=== PATIENT | male | born 1945 | race Caucasian/White ===

== ENCOUNTER 2019-06-24 18:46 | Inpatient (IN) | payer MEDICAID, MEDICARE ==
[~2019-06-24] VITALS: Ht 175.3 cm; Wt 62.6 kg
[2019-06-24] MEDS ORDERED: IV NORMAL SALINE 1000 ML BAG IV ONE (19:00)
[2019-06-24] MEDS ORDERED: CEFTRIAXONE 1 G in IV DEXTROSE 5% 50 ML IV ONE (19:00)
[2019-06-24] MEDS ORDERED: CEFTRIAXONE 1 G VIAL ONE (19:03)
[2019-06-24 19:10] LABS: ABG BASE EXCESS 4.1 mmol/L; ABG HCO3 25.6 mmol/L; ABG PCO2 29.5 mmHg (35.0-45.0); ABG PH 7.557 (7.350-7.450); ABG PO2 49.2 mmHg (75.0-100.0); ABG SITE RIGHT RADIAL; ABG TOTAL HEMOGLOBIN 13.2 G/dL (13.5-18.0); COHb 2.3 % (0.5-1.5); MetHb 0.2 % (0.0-1.5); O2Hb 83.5 % (94.0-97.0); VENT MODE Room Air
[2019-06-24 19:14] LABS: HEMOGLOBIN 12.3 g/dL (12.5-16.3); LYMPHOCYTES # (AUTO) 0.9 K/uL (20.0-40.0); MEAN CORPUSCULAR VOLUME 84.8 fL (73.0-96.2)
[2019-06-24 19:16] LABS: BASOPHILS # (AUTO) 0.2 K/uL (0.0-8.0); BASOPHILS % (AUTO) 0.6 % (0.0-2.0); HEMATOCRIT 37.6 % (36.7-47.1); LYMPHOCYTES % (AUTO) 2.5 % (20.5-51.5); MEAN CORPUSCULAR HEMOGLOBIN 27.9 uug (23.8-33.4); MEAN CORPUSCULAR HGB CONC 33 g/dL (32.5-36.3); MONOCYTES # (AUTO) 1.7 K/uL (2.0-10.0); MONOCYTES % (AUTO) 4.6 % (0.0-11.0); NEUTROPHILS # (AUTO) 33.6 K/uL (1.8-8.9); NEUTROPHILS % (AUTO) 92.3 % (38.5-71.5); PLATELET COUNT (AUTO) 324 K/uL (152-348); RED BLOOD CELL COUNT(AUTO) 4.43 MIL/uL (4.06-5.63)
[2019-06-24 19:18] LABS: CARBON DIOXIDE 26 mmol/L (21-32); CHLORIDE 94 mmol/L (98-107); CREATININE 3.7 mg/dL (0.6-1.3); GLUCOSE 148 mg/dL (74-106); POTASSIUM 5.8 mmol/L (3.5-5.1); UREA NITROGEN, BLOOD 65 mg/dL (7-18)
[2019-06-24 19:20] LABS: WHITE BLOOD COUNT (AUTO) 36.5 K/uL (3.6-10.2)
[2019-06-24 19:30] LABS: ALANINE AMINOTRANSFERASE 55 U/L (16-63); ALKALINE PHOSPHATASE 83 U/L (50-136); ASPARTATE AMINOTRANSFERASE 44 U/L (15-37); BILIRUBIN,DIRECT 0.4 mg/dL (0.0-0.2); BILIRUBIN,TOTAL 0.8 mg/dL (0.2-1.0); TOTAL PROTEIN, SERUM 7.4 g/dL (6.4-8.2)
[2019-06-24] MEDS ORDERED: LEVOFLOXACIN 750 MG/D5W 150 ML PIGGYBACK IV ONE (19:45)
[2019-06-24 19:58] LABS: *BILIRUBIN,URIN 1+ (NEGATIVE); *CLARITY,URINE CLEAR (CLEAR); *COLOR,URINE AMBER (YELLOW); *KETONES,URINE NEGATIVE (NEGATIVE); *UROBILINOGEN,URINE 0.2 E.U./dl (NORMAL); LEUKOCYTE ESTERASE ,URINE NEGATIVE (NEGATIVE); NITRITE, URINE NEGATIVE (NEGATIVE); PH,URINE 6.5 (5.0-8.0); UGLUCOSE NEGATIVE (NEGATIVE)
[2019-06-24] MEDS ORDERED: LEVOFLOXACIN 750MG/D5W 150 ML IV ONE (20:01)
[2019-06-24 20:07] LABS: *BLOOD, URINE TRACE (NEGATIVE)
[2019-06-24 20:08] LABS: MUCUS,URINE MANY /LPF (0-FEW); SQUAMOUS EPITHELIAL CELL,UR FEW /HPF (NONE SEEN)
[2019-06-24 20:15] LABS: BAND % (MANUAL) 10 % (0-10); LYMPHOCYTES % (MANUAL) 2 % (20-40); MONOCYTES % (MANUAL) 4 % (2-10); NEUTROPHILS % (MANUAL) 84 % (42-75)
[2019-06-24] MEDS ORDERED: ENOXAPARIN SODIUM 60 MG/0.6 ML DISP.SYRIN SQ ONE ×2 (20:15→20:31)
[2019-06-24] MEDS ORDERED: CALC-1277 PO (20:40)
[2019-06-24] MEDS ORDERED: VENL150T PO (20:40)
[2019-06-24] MEDS ORDERED: PANT40TA4 PO (20:40)
[2019-06-24] MEDS ORDERED: CALC500T13 PO (20:40)
[2019-06-24] MEDS ORDERED: METO50TA16 PO (20:40)
[2019-06-24] MEDS ORDERED: ALPR0.255 PO (20:40)
[2019-06-24] MEDS ORDERED: RIFA300C4 PO (20:40)
[2019-06-24] MEDS ORDERED: FINA5TAB11 PO (20:40)
[2019-06-24] MEDS ORDERED: ZOLP10TA6 PO (20:40)
[2019-06-24] MEDS ORDERED: PRED20TA PO (20:40)
[2019-06-24] MEDS ORDERED: VARE1TAB PO (20:40)
[2019-06-24] MEDS ORDERED: UMEC1BLS IH (20:40)
[2019-06-24] MEDS ORDERED: SULF1TAB48 PO (20:40)
[2019-06-24] MEDS ORDERED: FLUT1DIS27 IH (20:40)
[2019-06-24] MEDS ORDERED: PRIM50TA27 PO (20:40)
[2019-06-24] MEDS ORDERED: BUPR150T10 PO (20:40)
[2019-06-24] MEDS ORDERED: TRAM50TA2 PO (20:40)
[2019-06-24] MEDS ORDERED: NICO-672 TD (20:40)
[2019-06-24] MEDS ORDERED: TERA5CAP4 PO (20:40)
[2019-06-24] MEDS ORDERED: ONDA4TAB10 PO (20:40)
[2019-06-24] MEDS ORDERED: RANI150T8 PO (20:40)
[2019-06-24] MEDS ORDERED: PRIMIDONE 50 MG TABLET PO SCH (21:00)
[2019-06-24] MEDS ORDERED: ALPRAZOLAM 0.25 MG TABLET PO PRN (21:00)
[2019-06-24] MEDS ORDERED: Z GUARD REMEDY PASTE 57 GM TUBE TOP PRN (21:15)
[2019-06-24] MEDS ORDERED: ONDANSETRON 4 MG/2 ML VIAL IV PRN (21:15)
[2019-06-24] MEDS ORDERED: TEMAZEPAM 7.5 MG CAPSULE PO PRN (21:30)
[2019-06-24] MEDS ORDERED: ALBUTEROL SULFATE 2.5 MG/3 ML NEBU NEB PRN (21:30)
[2019-06-24 21:40] VITALS: BP 119/64
[2019-06-24 22:29] VITALS: BP 119/64
[2019-06-25] VITALS (26 sets, daily range): BP systolic 83–132; BP diastolic 40–88
[2019-06-25] MEDS: NICOTINE 7 MG/24HR PATCH TD SCH ×2 (00:22→08:34)
[2019-06-25] MEDS: PIPERACILLIN SODIUM/TAZOBACTAM 3.375 G in IV DEXTROSE 5% 50 ML IV SCH ×2 (00:26→08:34)
[2019-06-25] MEDS ORDERED: PIPERACILLIN/TAZOBACTAM/D5W 50 ML IV ONE (00:26)
[2019-06-25] MEDS: PANTOPRAZOLE SODIUM 40 MG TABLET.DR PO SCH (07:13)
[2019-06-25 08:21] LABS: BASOPHILS % (AUTO) 0.1 % (0.0-2.0); EOSINOPHILS # (AUTO) 0.1 K/uL (0.0-0.7); EOSINOPHILS % (AUTO) 0.2 % (0.0-7.0); HEMATOCRIT 33.8 % (36.7-47.1); HEMOGLOBIN 10.9 g/dL (12.5-16.3); LYMPHOCYTES # (AUTO) 0.7 K/uL (20.0-40.0); LYMPHOCYTES % (AUTO) 2.2 % (20.5-51.5); MEAN CORPUSCULAR HEMOGLOBIN 28.3 uug (23.8-33.4); MEAN CORPUSCULAR HGB CONC 32 g/dL (32.5-36.3); MEAN CORPUSCULAR VOLUME 87.5 fL (73.0-96.2); MONOCYTES # (AUTO) 1.4 K/uL (2.0-10.0); MONOCYTES % (AUTO) 4.8 % (0.0-11.0); NEUTROPHILS # (AUTO) 27.8 K/uL (1.8-8.9); NEUTROPHILS % (AUTO) 92.7 % (38.5-71.5); PLATELET COUNT (AUTO) 214 K/uL (152-348); RED BLOOD CELL COUNT(AUTO) 3.86 MIL/uL (4.06-5.63)
[2019-06-25] MEDS: FINASTERIDE 5 MG TABLET PO SCH (08:34)
[2019-06-25 08:38] LABS: THYROID STIMULATING HORMONE 1.004 mIU/mL (0.358-3.740)
[2019-06-25] MEDS: TERAZOSIN 5 MG CAPSULE PO SCH (08:39)
[2019-06-25 08:49] LABS: ALANINE AMINOTRANSFERASE 42 U/L (16-63); ALKALINE PHOSPHATASE 73 U/L (50-136); ASPARTATE AMINOTRANSFERASE 41 U/L (15-37); BILIRUBIN,TOTAL 0.4 mg/dL (0.2-1.0); CARBON DIOXIDE 25 mmol/L (21-32); CHLORIDE 100 mmol/L (98-107); CHOLESTEROL 221 mg/dL (<200); CREATININE 4.5 mg/dL (0.6-1.3); GLUCOSE 108 mg/dL (74-106); HDL CHOLESTEROL 67 mg/dL (40-60); PHOSPHOROUS 5.6 mg/dL (2.5-4.9); POTASSIUM 4.5 mmol/L (3.5-5.1); TOTAL PROTEIN, SERUM 6.7 g/dL (6.4-8.2); TRIGLYCERIDES 156 MG/DL (30-150); UREA NITROGEN, BLOOD 54 mg/dL (7-18)
[2019-06-25] MEDS: FLUTICASONE/VILANTEROL 1 EACH BLST.W.DEV INH SCH (09:00)
[2019-06-25] MEDS ORDERED: HEPARIN SODIUM,PORCINE 5,000 UNITS/ML VIAL SQ SCH (09:00)
[2019-06-25] MEDS ORDERED: buPROPion SR 150 MG TABLET.SA PO SCH ×2 (09:00)
[2019-06-25] MEDS ORDERED: RIFAMPIN 300 MG CAPSULE PO SCH (09:00)
[2019-06-25] MEDS ORDERED: FLUTICASONE/SALMETEROL 100/50 1 INH DISK.W.DEV IH SCH (09:00)
[2019-06-25] MEDS ORDERED: METOPROLOL TARTRATE 50 MG TABLET PO SCH (09:00)
[2019-06-25 09:28] LABS: BAND % (MANUAL) 2 % (0-10); LYMPHOCYTES % (MANUAL) 3 % (20-40); MONOCYTES % (MANUAL) 5 % (2-10); NEUTROPHILS % (MANUAL) 90 % (42-75)
[2019-06-25] MEDS ORDERED: IV NS 1000 ML 1,000 ML IV ONE (10:45)
[2019-06-25] MEDS: CALCIUM CARB/VITAMIN D 250MG-125UNITS TABLET PO SCH (10:52)
[2019-06-25] MEDS: VENLAFAXINE XR 150 MG CAP.SR.24H PO SCH (11:00)
[2019-06-25] MEDS ORDERED: NOREPINEPHRINE BITARTRATE 16 MG in IV DEXTROSE 5% 500 ML IV PRN (12:00)
[2019-06-25] MEDS: buPROPion XL 150 MG TAB.SR.24H PO SCH (12:30)
[2019-06-25] MEDS ORDERED: BUPR-51 PO (12:40)
[2019-06-25] MEDS: PRIMIDONE 50 MG TABLET PO SCH ×2 (13:55→21:02)
[2019-06-25] MEDS ORDERED: LINEZOLID IV 600 MG in PREMIXED 1 EACH IV SCH (16:45)
[2019-06-25] MEDS: MEROPENEM 500 MG in IV NORMAL SALINE 50 ML IV SCH (17:58)
[2019-06-25] MEDS ORDERED: VANCOMYCIN IV 1,000 MG in IV DEXTROSE 5% 250 ML IV ONE (18:00)
[2019-06-25] MEDS: DOCUSATE SODIUM 100 MG CAPSULE PO SCH (21:00)
[2019-06-25] MEDS: LEVOFLOXACIN 750MG/D5W 750 MG in PREMIXED 1 EACH IV SCH (21:01)
[2019-06-25] MEDS: MORPHINE SULFATE 2 MG/1 ML DISP.SYRIN IV PRN (23:36)
[2019-06-26] VITALS (25 sets, daily range): BP systolic 95–147; BP diastolic 44–85
[2019-06-26 04:59] LABS: BASOPHILS % (AUTO) 0.2 % (0.0-2.0); EOSINOPHILS # (AUTO) 0.2 K/uL (0.0-0.7); EOSINOPHILS % (AUTO) 0.9 % (0.0-7.0); HEMATOCRIT 30.1 % (36.7-47.1); HEMOGLOBIN 9.7 g/dL (12.5-16.3); LYMPHOCYTES # (AUTO) 0.9 K/uL (20.0-40.0); LYMPHOCYTES % (AUTO) 4.6 % (20.5-51.5); MEAN CORPUSCULAR HEMOGLOBIN 28.3 uug (23.8-33.4); MEAN CORPUSCULAR HGB CONC 32 g/dL (32.5-36.3); MONOCYTES # (AUTO) 1.1 K/uL (2.0-10.0); MONOCYTES % (AUTO) 5.9 % (0.0-11.0); NEUTROPHILS # (AUTO) 16.4 K/uL (1.8-8.9); NEUTROPHILS % (AUTO) 88.4 % (38.5-71.5); PLATELET COUNT (AUTO) 181 K/uL (152-348); RED BLOOD CELL COUNT(AUTO) 3.42 MIL/uL (4.06-5.63); WHITE BLOOD COUNT (AUTO) 18.6 K/uL (3.6-10.2)
[2019-06-26 05:07] LABS: CARBON DIOXIDE 22 mmol/L (21-32); CHLORIDE 104 mmol/L (98-107); GLUCOSE 115 mg/dL (74-106); MAGNESIUM 1.4 mg/dL (1.8-2.4); PHOSPHOROUS 2.4 mg/dL (2.5-4.9); POTASSIUM 3.5 mmol/L (3.5-5.1); UREA NITROGEN, BLOOD 33 mg/dL (7-18)
[2019-06-26] MEDS: PRIMIDONE 50 MG TABLET PO SCH ×3 (06:00→21:40)
[2019-06-26] MEDS: MEROPENEM 500 MG in IV NORMAL SALINE 50 ML IV SCH ×2 (06:03→18:07)
[2019-06-26] MEDS: PANTOPRAZOLE SODIUM 40 MG TABLET.DR PO SCH (06:25)
[2019-06-26 08:16] LABS: ABG BASE EXCESS -3.7 mmol/L; ABG HCO3 18.4 mmol/L; ABG PCO2 25.2 mmHg (35.0-45.0); ABG PH 7.481 (7.350-7.450); ABG PO2 55.5 mmHg (75.0-100.0); ABG SITE RIGHT RADIAL; ABG TOTAL HEMOGLOBIN 11.5 G/dL (13.5-18.0); COHb 1.2 % (0.5-1.5); MetHb 0.1 % (0.0-1.5); O2Hb 88.8 % (94.0-97.0); VENT MODE Nasal Cannula
[2019-06-26] MEDS: buPROPion XL 150 MG TAB.SR.24H PO SCH (09:00)
[2019-06-26] MEDS: FINASTERIDE 5 MG TABLET PO SCH (09:00)
[2019-06-26] MEDS: NICOTINE 7 MG/24HR PATCH TD SCH (09:00)
[2019-06-26] MEDS: TERAZOSIN 5 MG CAPSULE PO SCH (09:00)
[2019-06-26] MEDS: FLUTICASONE/VILANTEROL 1 EACH BLST.W.DEV INH SCH (09:00)
[2019-06-26] MEDS: VENLAFAXINE XR 150 MG CAP.SR.24H PO SCH (09:00)
[2019-06-26] MEDS: MAGNESIUM SULFATE/D5W 100 ML IV SCH ×4 (09:15→16:30)
[2019-06-26] MEDS: CALCIUM CARBONATE 500 MG TAB.CHEW PO PRN (09:19)
[2019-06-26] MEDS: HYDROCODONE/APAP 10-325 MG TABLET PO PRN ×2 (09:19→16:40)
[2019-06-26] MEDS: CALCIUM CARB/VITAMIN D 250MG-125UNITS TABLET PO SCH (10:10)
[2019-06-26] MEDS ORDERED: MAGNESIUM SULFATE/D5W 100 ML IV SCH (15:30)
[2019-06-26] MEDS ORDERED: NEUTRA PHOS PACKET PO ONE (16:00)
[2019-06-26] MEDS ORDERED: VANCOMYCIN IV 1,000 MG in IV DEXTROSE 5% 250 ML IV ONE (17:00)
[2019-06-26] MEDS: DOCUSATE SODIUM 100 MG CAPSULE PO SCH ×2 (20:39→21:00)
[2019-06-26] MEDS ORDERED: IV NORMAL SALINE 500 ML BAG IV ONE (23:30)
[2019-06-26] MEDS: MORPHINE SULFATE 2 MG/1 ML DISP.SYRIN IV PRN (23:41)
[2019-06-27] VITALS (13 sets, daily range): BP systolic 115–154; BP diastolic 56–76
[2019-06-27 00:54] LABS: MAGNESIUM 2.1 mg/dL (1.8-2.4); POTASSIUM 3.2 mmol/L (3.5-5.1)
[2019-06-27] MEDS: IV NORMAL SALINE 250 ML IV PRN ×2 (01:29→19:07)
[2019-06-27] MEDS: POTASSIUM CHLORIDE 50 ML IV SCH ×4 (02:15→04:39)
[2019-06-27] MEDS: MEROPENEM 500 MG in IV NORMAL SALINE 50 ML IV SCH ×2 (05:28→17:23)
[2019-06-27] MEDS: PRIMIDONE 50 MG TABLET PO SCH ×3 (06:00→22:46)
[2019-06-27] MEDS: PANTOPRAZOLE SODIUM 40 MG TABLET.DR PO SCH (06:28)
[2019-06-27 06:35] LABS: CARBON DIOXIDE 23 mmol/L (21-32); CHLORIDE 107 mmol/L (98-107); CREATININE 1.6 mg/dL (0.6-1.3); GLUCOSE 92 mg/dL (74-106); MAGNESIUM 1.9 mg/dL (1.8-2.4); PHOSPHOROUS 1.7 mg/dL (2.5-4.9); UREA NITROGEN, BLOOD 22 mg/dL (7-18)
[2019-06-27] MEDS ORDERED: MISCELLANEOUS MED XX PRN (07:45)
[2019-06-27 07:48] LABS: BASOPHILS # (AUTO) 0.1 K/uL (0.0-8.0); BASOPHILS % (AUTO) 0.3 % (0.0-2.0); EOSINOPHILS # (AUTO) 0.1 K/uL (0.0-0.7); EOSINOPHILS % (AUTO) 0.6 % (0.0-7.0); HEMATOCRIT 31.9 % (36.7-47.1); HEMOGLOBIN 10.3 g/dL (12.5-16.3); LYMPHOCYTES # (AUTO) 1.3 K/uL (20.0-40.0); LYMPHOCYTES % (AUTO) 6.4 % (20.5-51.5); MEAN CORPUSCULAR HEMOGLOBIN 28.3 uug (23.8-33.4); MEAN CORPUSCULAR HGB CONC 32 g/dL (32.5-36.3); MEAN CORPUSCULAR VOLUME 87.3 fL (73.0-96.2); MONOCYTES # (AUTO) 1.2 K/uL (2.0-10.0); MONOCYTES % (AUTO) 5.6 % (0.0-11.0); NEUTROPHILS # (AUTO) 18.2 K/uL (1.8-8.9); NEUTROPHILS % (AUTO) 87.1 % (38.5-71.5); PLATELET COUNT (AUTO) 183 K/uL (152-348); RED BLOOD CELL COUNT(AUTO) 3.65 MIL/uL (4.06-5.63); WHITE BLOOD COUNT (AUTO) 20.9 K/uL (3.6-10.2)
[2019-06-27] MEDS ORDERED: VANCOMYCIN IV 1,000 MG in IV DEXTROSE 5% 250 ML IV ONE (08:00)
[2019-06-27] MEDS: ACETAMINOPHEN 650 MG SUPP.RECT RC PRN ×3 (08:03→19:07)
[2019-06-27 08:20] LABS: *BILIRUBIN,URIN 1+ (NEGATIVE); *BLOOD, URINE 2+ (NEGATIVE); *CLARITY,URINE CLEAR (CLEAR); *COLOR,URINE YELLOW (YELLOW); *KETONES,URINE 1+ (NEGATIVE); *UROBILINOGEN,URINE 0.2 E.U./dl (NORMAL); LEUKOCYTE ESTERASE ,URINE NEGATIVE (NEGATIVE); NITRITE, URINE NEGATIVE (NEGATIVE); PH,URINE 5.5 (5.0-8.0); UGLUCOSE NEGATIVE (NEGATIVE)
[2019-06-27 08:34] LABS: BACTERIA,URINE FEW /HPF (NONE SEEN); SQUAMOUS EPITHELIAL CELL,UR FEW /HPF (NONE SEEN)
[2019-06-27 08:43] LABS: ABG BASE EXCESS -2.5 mmol/L; ABG HCO3 19.9 mmol/L; ABG PCO2 27.4 mmHg (35.0-45.0); ABG PH 7.479 (7.350-7.450); ABG PO2 68.4 mmHg (75.0-100.0); ABG SITE RIGHT RADIAL; ABG TOTAL HEMOGLOBIN 11.5 G/dL (13.5-18.0); MetHb 0.1 % (0.0-1.5); O2Hb 92.4 % (94.0-97.0); VENT MODE Nasal Cannula
[2019-06-27] MEDS: FINASTERIDE 5 MG TABLET PO SCH (09:00)
[2019-06-27] MEDS: CALCIUM CARB/VITAMIN D 250MG-125UNITS TABLET PO SCH (09:00)
[2019-06-27] MEDS: TERAZOSIN 5 MG CAPSULE PO SCH (09:00)
[2019-06-27] MEDS: buPROPion XL 150 MG TAB.SR.24H PO SCH (09:00)
[2019-06-27] MEDS: VENLAFAXINE XR 150 MG CAP.SR.24H PO SCH (09:00)
[2019-06-27] MEDS: ALBUTEROL SULFATE 2.5 MG/3 ML NEBU NEB SCH ×3 (10:30→21:11)
[2019-06-27] MEDS: IPRATROPIUM BROMIDE 0.5 MG/2.5 ML NEBU NEB SCH ×3 (10:30→21:11)
[2019-06-27] MEDS: MICAFUNGIN SODIUM 100 MG in IV NORMAL SALINE 100 ML IV SCH (11:48)
[2019-06-27] MEDS: MORPHINE SULFATE 2 MG/1 ML DISP.SYRIN IV PRN (14:36)
[2019-06-27] MEDS ORDERED: NEUTRA PHOS PACKET PO ONE (15:30)
[2019-06-27] MEDS: LEVOFLOXACIN 750MG/D5W 750 MG in PREMIXED 1 EACH IV SCH (19:56)
[2019-06-27] MEDS: DOCUSATE SODIUM 100 MG CAPSULE PO SCH (20:40)
[2019-06-28] VITALS (9 sets, daily range): BP systolic 95–128; BP diastolic 53–93
[2019-06-28] MEDS: ACETAMINOPHEN 325 MG TABLET PO PRN (04:29)
[2019-06-28] MEDS: MORPHINE SULFATE 2 MG/1 ML DISP.SYRIN IV PRN ×2 (04:29→22:08)
[2019-06-28] MEDS: MEROPENEM 500 MG in IV NORMAL SALINE 50 ML IV SCH ×2 (05:30→18:07)
[2019-06-28] MEDS: PRIMIDONE 50 MG TABLET PO SCH ×4 (05:30→21:57)
[2019-06-28 07:02] LABS: BASOPHILS % (AUTO) 0.3 % (0.0-2.0); EOSINOPHILS # (AUTO) 0.2 K/uL (0.0-0.7); HEMATOCRIT 32.9 % (36.7-47.1); HEMOGLOBIN 10.7 g/dL (12.5-16.3); LYMPHOCYTES # (AUTO) 0.9 K/uL (20.0-40.0); LYMPHOCYTES % (AUTO) 4.6 % (20.5-51.5); MEAN CORPUSCULAR HEMOGLOBIN 28.6 uug (23.8-33.4); MEAN CORPUSCULAR HGB CONC 32 g/dL (32.5-36.3); MEAN CORPUSCULAR VOLUME 88.1 fL (73.0-96.2); MONOCYTES # (AUTO) 1.4 K/uL (2.0-10.0); MONOCYTES % (AUTO) 7.2 % (0.0-11.0); NEUTROPHILS # (AUTO) 16.6 K/uL (1.8-8.9); NEUTROPHILS % (AUTO) 86.9 % (38.5-71.5); PLATELET COUNT (AUTO) 176 K/uL (152-348); RED BLOOD CELL COUNT(AUTO) 3.73 MIL/uL (4.06-5.63); WHITE BLOOD COUNT (AUTO) 19.1 K/uL (3.6-10.2)
[2019-06-28 07:31] LABS: ALANINE AMINOTRANSFERASE 39 U/L (16-63); ALKALINE PHOSPHATASE 107 U/L (50-136); ASPARTATE AMINOTRANSFERASE 33 U/L (15-37); BILIRUBIN,TOTAL 0.3 mg/dL (0.2-1.0); CARBON DIOXIDE 27 mmol/L (21-32); CHLORIDE 108 mmol/L (98-107); CREATININE 1.2 mg/dL (0.6-1.3); GLUCOSE 146 mg/dL (74-106); MAGNESIUM 1.5 mg/dL (1.8-2.4); PHOSPHOROUS 2.4 mg/dL (2.5-4.9); TOTAL PROTEIN, SERUM 6.6 g/dL (6.4-8.2); UREA NITROGEN, BLOOD 23 mg/dL (7-18); VANCOMYCIN,RANDOM 14.9 ug/mL (18.0-26.0)
[2019-06-28] MEDS: ALBUTEROL SULFATE 2.5 MG/3 ML NEBU NEB SCH ×4 (07:55→20:51)
[2019-06-28] MEDS: IPRATROPIUM BROMIDE 0.5 MG/2.5 ML NEBU NEB SCH ×4 (07:55→20:50)
[2019-06-28] MEDS: TERAZOSIN 5 MG CAPSULE PO SCH ×3 (09:00→13:30)
[2019-06-28] MEDS: CALCIUM CARB/VITAMIN D 250MG-125UNITS TABLET PO SCH ×2 (09:00→09:19)
[2019-06-28] MEDS: VENLAFAXINE XR 150 MG CAP.SR.24H PO SCH ×3 (09:00→13:30)
[2019-06-28] MEDS: RIFAMPIN 300 MG CAPSULE PO SCH ×3 (09:00→13:30)
[2019-06-28] MEDS: FINASTERIDE 5 MG TABLET PO SCH ×3 (09:00→13:30)
[2019-06-28] MEDS: PANTOPRAZOLE SODIUM 40 MG VIAL IV SCH (09:15)
[2019-06-28] MEDS: buPROPion XL 150 MG TAB.SR.24H PO SCH (09:17)
[2019-06-28] MEDS: POTASSIUM CHLORIDE 50 ML IV SCH ×6 (09:46→19:02)
[2019-06-28] MEDS ORDERED: VANCOMYCIN IV 1,000 MG in IV DEXTROSE 5% 250 ML IV ONE (10:00)
[2019-06-28] MEDS: MICAFUNGIN SODIUM 100 MG in IV NORMAL SALINE 100 ML IV SCH (11:46)
[2019-06-28] MEDS: VANCOMYCIN FOR PO/GT/NG USE PO SCH ×3 (12:00→17:16)
[2019-06-28] MEDS: SULFAMETH/TRIMETH 800/160 MG TABLET PO SCH (13:00)
[2019-06-28] MEDS: methylPREDNISolone SOD SUCC 40 MG/ML VIAL IV SCH ×2 (13:06→21:18)
[2019-06-28] MEDS: MAGNESIUM SULFATE/D5W 100 ML IV SCH ×2 (15:07→17:07)
[2019-06-28] MEDS ORDERED: NEUTRA PHOS PACKET PO ONE (15:30)
[2019-06-28] MEDS: METOPROLOL TARTRATE 25 MG TABLET PO SCH ×2 (19:00→21:17)
[2019-06-28] MEDS ORDERED: SULFAMETH/TRIMETH 800/160 MG TABLET PO SCH (21:00)
[2019-06-28] MEDS: DOCUSATE SODIUM 100 MG CAPSULE PO SCH (21:18)
[2019-06-29] VITALS (7 sets, daily range): BP systolic 90–138; BP diastolic 56–90
[2019-06-29] MEDS: VANCOMYCIN FOR PO/GT/NG USE PO SCH ×5 (00:05→23:46)
[2019-06-29] MEDS: METOPROLOL TARTRATE 25 MG TABLET PO SCH ×6 (01:21→23:46)
[2019-06-29] MEDS: HYDROCODONE/APAP 5-325MG TABLET PO PRN ×2 (01:25→20:44)
[2019-06-29] MEDS: MEROPENEM 500 MG in IV NORMAL SALINE 50 ML IV SCH ×2 (05:31→18:39)
[2019-06-29] MEDS: methylPREDNISolone SOD SUCC 40 MG/ML VIAL IV SCH ×3 (05:32→22:06)
[2019-06-29] MEDS: PRIMIDONE 50 MG TABLET PO SCH ×3 (05:46→22:06)
[2019-06-29 06:39] LABS: BASOPHILS % (AUTO) 0.2 % (0.0-2.0); EOSINOPHILS # (AUTO) 0.1 K/uL (0.0-0.7); EOSINOPHILS % (AUTO) 0.6 % (0.0-7.0); HEMATOCRIT 32.1 % (36.7-47.1); HEMOGLOBIN 10.3 g/dL (12.5-16.3); LYMPHOCYTES # (AUTO) 1.2 K/uL (20.0-40.0); LYMPHOCYTES % (AUTO) 9.5 % (20.5-51.5); MEAN CORPUSCULAR HEMOGLOBIN 28.3 uug (23.8-33.4); MEAN CORPUSCULAR HGB CONC 32 g/dL (32.5-36.3); MEAN CORPUSCULAR VOLUME 88.1 fL (73.0-96.2); MONOCYTES % (AUTO) 7.4 % (0.0-11.0); NEUTROPHILS # (AUTO) 10.7 K/uL (1.8-8.9); NEUTROPHILS % (AUTO) 82.3 % (38.5-71.5); PLATELET COUNT (AUTO) 147 K/uL (152-348); RED BLOOD CELL COUNT(AUTO) 3.65 MIL/uL (4.06-5.63)
[2019-06-29] MEDS: ALBUTEROL SULFATE 2.5 MG/3 ML NEBU NEB SCH ×4 (07:28→19:10)
[2019-06-29] MEDS: IPRATROPIUM BROMIDE 0.5 MG/2.5 ML NEBU NEB SCH ×4 (07:28→19:10)
[2019-06-29 08:55] LABS: BILIRUBIN,TOTAL 0.2 mg/dL (0.2-1.0); CREATININE 1.2 mg/dL (0.6-1.3); MAGNESIUM 1.9 mg/dL (1.8-2.4); PHOSPHOROUS 3.5 mg/dL (2.5-4.9); POTASSIUM 4.4 mmol/L (3.5-5.1); TOTAL PROTEIN, SERUM 6.2 g/dL (6.4-8.2); VANCOMYCIN,RANDOM 14.2 ug/mL (18.0-26.0)
[2019-06-29] MEDS: TERAZOSIN 5 MG CAPSULE PO SCH (09:00)
[2019-06-29] MEDS: FINASTERIDE 5 MG TABLET PO SCH (09:45)
[2019-06-29] MEDS: buPROPion XL 150 MG TAB.SR.24H PO SCH (09:45)
[2019-06-29] MEDS: PANTOPRAZOLE SODIUM 40 MG VIAL IV SCH (09:46)
[2019-06-29] MEDS: RIFAMPIN 300 MG CAPSULE PO SCH (09:51)
[2019-06-29] MEDS: CALCIUM CARB/VITAMIN D 250MG-125UNITS TABLET PO SCH (09:51)
[2019-06-29] MEDS: VENLAFAXINE XR 150 MG CAP.SR.24H PO SCH (09:51)
[2019-06-29] MEDS: MAGNESIUM SULFATE/D5W 100 ML IV SCH ×2 (09:59→11:02)
[2019-06-29] MEDS ORDERED: VANCOMYCIN IV 1,000 MG in IV DEXTROSE 5% 250 ML IV ONE (10:00)
[2019-06-29] MEDS: PYRIDOXINE HCL 100 MG TABLET PO SCH (10:02)
[2019-06-29] MEDS: MICAFUNGIN SODIUM 100 MG in IV NORMAL SALINE 100 ML IV SCH (12:09)
[2019-06-29] MEDS: SULFAMETH/TRIMETH 800/160 MG TABLET PO SCH (12:10)
[2019-06-29] MEDS: POTASSIUM PHOSPHATE MM 7.5 MMOL in IV DEXTROSE 5% 100 ML IV SCH ×2 (15:16→22:05)
[2019-06-29] MEDS: CALCIUM CARBONATE 500 MG TAB.CHEW PO PRN (17:16)
[2019-06-29] MEDS: LEVOFLOXACIN 750MG/D5W 750 MG in PREMIXED 1 EACH IV SCH (20:31)
[2019-06-29] MEDS: DOCUSATE SODIUM 100 MG CAPSULE PO SCH (20:45)
[2019-06-30 00:01] VITALS: BP 103/68
[2019-06-30] MEDS: MEROPENEM 500 MG in IV NORMAL SALINE 50 ML IV SCH ×2 (05:25→17:49)
[2019-06-30] MEDS: methylPREDNISolone SOD SUCC 40 MG/ML VIAL IV SCH ×3 (05:25→21:01)
[2019-06-30] MEDS: VANCOMYCIN FOR PO/GT/NG USE PO SCH ×3 (05:26→17:37)
[2019-06-30] MEDS: METOPROLOL TARTRATE 25 MG TABLET PO SCH ×3 (05:26→17:40)
[2019-06-30] MEDS: PRIMIDONE 50 MG TABLET PO SCH ×3 (05:33→21:01)
[2019-06-30 05:42] VITALS: BP 106/69
[2019-06-30] MEDS: PANTOPRAZOLE SODIUM 40 MG TABLET.DR PO SCH (06:01)
[2019-06-30] MEDS: IPRATROPIUM BROMIDE 0.5 MG/2.5 ML NEBU NEB SCH ×4 (07:28→19:13)
[2019-06-30] MEDS: ALBUTEROL SULFATE 2.5 MG/3 ML NEBU NEB SCH ×4 (07:28→19:13)
[2019-06-30] MEDS: TERAZOSIN 5 MG CAPSULE PO SCH (09:00)
[2019-06-30] MEDS: FINASTERIDE 5 MG TABLET PO SCH (09:11)
[2019-06-30] MEDS: buPROPion XL 150 MG TAB.SR.24H PO SCH (09:11)
[2019-06-30] MEDS: CALCIUM CARB/VITAMIN D 250MG-125UNITS TABLET PO SCH (09:12)
[2019-06-30] MEDS: PYRIDOXINE HCL 100 MG TABLET PO SCH (09:12)
[2019-06-30] MEDS: VENLAFAXINE XR 150 MG CAP.SR.24H PO SCH (09:13)
[2019-06-30] MEDS: RIFAMPIN 300 MG CAPSULE PO SCH (09:14)
[2019-06-30] MEDS: CALCIUM CARBONATE 500 MG TAB.CHEW PO PRN ×2 (09:34→17:37)
[2019-06-30 11:00] VITALS: BP 100/57
[2019-06-30 11:15] VITALS: BP 100/57
[2019-06-30] MEDS: MICAFUNGIN SODIUM 100 MG in IV NORMAL SALINE 100 ML IV SCH (12:18)
[2019-06-30] MEDS: SULFAMETH/TRIMETH 800/160 MG TABLET PO SCH (13:32)
[2019-06-30 15:20] VITALS: BP 121/68
[2019-06-30 20:01] VITALS: BP 112/73
[2019-06-30] MEDS: DOCUSATE SODIUM 100 MG CAPSULE PO SCH (20:46)
[2019-06-30] MEDS: HYDROCODONE/APAP 5-325MG TABLET PO PRN (21:00)
[2019-07-01 00:19] VITALS: BP 123/76
[2019-07-01] MEDS: VANCOMYCIN FOR PO/GT/NG USE PO SCH ×4 (00:27→18:07)
[2019-07-01] MEDS: METOPROLOL TARTRATE 25 MG TABLET PO SCH ×4 (00:28→20:55)
[2019-07-01 04:58] VITALS: BP 121/72
[2019-07-01] MEDS: methylPREDNISolone SOD SUCC 40 MG/ML VIAL IV SCH ×3 (05:35→21:05)
[2019-07-01] MEDS: MEROPENEM 500 MG in IV NORMAL SALINE 50 ML IV SCH ×2 (05:35→18:07)
[2019-07-01] MEDS: PRIMIDONE 50 MG TABLET PO SCH ×5 (05:37→21:04)
[2019-07-01] MEDS: CALCIUM CARBONATE 500 MG TAB.CHEW PO PRN ×3 (05:57→18:07)
[2019-07-01] MEDS: PANTOPRAZOLE SODIUM 40 MG TABLET.DR PO SCH (06:28)
[2019-07-01 06:35] LABS: BASOPHILS % (AUTO) 0.5 % (0.0-2.0); EOSINOPHILS # (AUTO) 0.2 K/uL (0.0-0.7); EOSINOPHILS % (AUTO) 1.8 % (0.0-7.0); HEMATOCRIT 31.8 % (36.7-47.1); HEMOGLOBIN 10.4 g/dL (12.5-16.3); LYMPHOCYTES # (AUTO) 1.1 K/uL (20.0-40.0); LYMPHOCYTES % (AUTO) 11.8 % (20.5-51.5); MEAN CORPUSCULAR HEMOGLOBIN 28.1 uug (23.8-33.4); MEAN CORPUSCULAR HGB CONC 33 g/dL (32.5-36.3); MONOCYTES # (AUTO) 0.9 K/uL (2.0-10.0); MONOCYTES % (AUTO) 9.5 % (0.0-11.0); NEUTROPHILS # (AUTO) 7.4 K/uL (1.8-8.9); NEUTROPHILS % (AUTO) 76.4 % (38.5-71.5); PLATELET COUNT (AUTO) 192 K/uL (152-348); WHITE BLOOD COUNT (AUTO) 9.6 K/uL (3.6-10.2)
[2019-07-01 06:48] LABS: CARBON DIOXIDE 23 mmol/L (21-32); CHLORIDE 106 mmol/L (98-107); GLUCOSE 100 mg/dL (74-106); MAGNESIUM 1.6 mg/dL (1.8-2.4); PHOSPHOROUS 2.9 mg/dL (2.5-4.9); POTASSIUM 4.1 mmol/L (3.5-5.1); UREA NITROGEN, BLOOD 18 mg/dL (7-18)
[2019-07-01] MEDS: IPRATROPIUM BROMIDE 0.5 MG/2.5 ML NEBU NEB SCH ×4 (07:28→20:57)
[2019-07-01] MEDS: ALBUTEROL SULFATE 2.5 MG/3 ML NEBU NEB SCH ×4 (07:28→20:57)
[2019-07-01] MEDS: RIFAMPIN 300 MG CAPSULE PO SCH (08:55)
[2019-07-01] MEDS: buPROPion XL 150 MG TAB.SR.24H PO SCH (09:01)
[2019-07-01] MEDS: TERAZOSIN 5 MG CAPSULE PO SCH (09:05)
[2019-07-01] MEDS: FINASTERIDE 5 MG TABLET PO SCH (09:06)
[2019-07-01] MEDS: CALCIUM CARB/VITAMIN D 250MG-125UNITS TABLET PO SCH (09:06)
[2019-07-01] MEDS: PYRIDOXINE HCL 100 MG TABLET PO SCH (09:06)
[2019-07-01] MEDS: VENLAFAXINE XR 150 MG CAP.SR.24H PO SCH (09:06)
[2019-07-01] MEDS: MAGNESIUM SULFATE/D5W 100 ML IV SCH ×2 (09:55→11:27)
[2019-07-01 11:01] VITALS: BP 100/56
[2019-07-01] MEDS: MICAFUNGIN SODIUM 100 MG in IV NORMAL SALINE 100 ML IV SCH (12:16)
[2019-07-01] MEDS: SULFAMETH/TRIMETH 800/160 MG TABLET PO SCH (13:14)
[2019-07-01 15:14] VITALS: BP 101/60
[2019-07-01] MEDS ORDERED: METOPROLOL TARTRATE 25 MG TABLET PO SCH (17:00)
[2019-07-01 20:00] VITALS: BP 121/75
[2019-07-01] MEDS: ACETAMINOPHEN 325 MG TABLET PO PRN (20:53)
[2019-07-01] MEDS: DOCUSATE SODIUM 100 MG CAPSULE PO SCH (20:56)
[2019-07-02 00:30] VITALS: BP 120/70
[2019-07-02 00:35] VITALS: BP 118/72
[2019-07-02] MEDS: VANCOMYCIN FOR PO/GT/NG USE PO SCH ×4 (00:36→17:22)
[2019-07-02 04:00] VITALS: BP 115/87
[2019-07-02] MEDS: MEROPENEM 500 MG in IV NORMAL SALINE 50 ML IV SCH ×2 (05:34→17:22)
[2019-07-02] MEDS: methylPREDNISolone SOD SUCC 40 MG/ML VIAL IV SCH ×3 (05:35→21:11)
[2019-07-02] MEDS: PANTOPRAZOLE SODIUM 40 MG TABLET.DR PO SCH (06:01)
[2019-07-02 06:19] LABS: BASOPHILS % (AUTO) 0.3 % (0.0-2.0); EOSINOPHILS # (AUTO) 0.2 K/uL (0.0-0.7); EOSINOPHILS % (AUTO) 1.9 % (0.0-7.0); HEMATOCRIT 31.3 % (36.7-47.1); HEMOGLOBIN 10.1 g/dL (12.5-16.3); LYMPHOCYTES # (AUTO) 1.3 K/uL (20.0-40.0); MEAN CORPUSCULAR HEMOGLOBIN 27.8 uug (23.8-33.4); MEAN CORPUSCULAR HGB CONC 32 g/dL (32.5-36.3); MEAN CORPUSCULAR VOLUME 86.5 fL (73.0-96.2); MONOCYTES # (AUTO) 0.8 K/uL (2.0-10.0); MONOCYTES % (AUTO) 8.2 % (0.0-11.0); NEUTROPHILS # (AUTO) 7.6 K/uL (1.8-8.9); NEUTROPHILS % (AUTO) 76.6 % (38.5-71.5); PLATELET COUNT (AUTO) 182 K/uL (152-348); RED BLOOD CELL COUNT(AUTO) 3.62 MIL/uL (4.06-5.63)
[2019-07-02 06:35] LABS: CARBON DIOXIDE 25 mmol/L (21-32); CHLORIDE 107 mmol/L (98-107); GLUCOSE 101 mg/dL (74-106); MAGNESIUM 1.7 mg/dL (1.8-2.4); PHOSPHOROUS 2.9 mg/dL (2.5-4.9); POTASSIUM 4.3 mmol/L (3.5-5.1); UREA NITROGEN, BLOOD 19 mg/dL (7-18)
[2019-07-02] MEDS: ALBUTEROL SULFATE 2.5 MG/3 ML NEBU NEB SCH ×4 (07:41→21:08)
[2019-07-02] MEDS: IPRATROPIUM BROMIDE 0.5 MG/2.5 ML NEBU NEB SCH ×4 (07:41→21:08)
[2019-07-02] MEDS: TERAZOSIN 5 MG CAPSULE PO SCH (08:57)
[2019-07-02] MEDS: FINASTERIDE 5 MG TABLET PO SCH (08:58)
[2019-07-02] MEDS: buPROPion XL 150 MG TAB.SR.24H PO SCH (08:58)
[2019-07-02] MEDS: METOPROLOL TARTRATE 25 MG TABLET PO SCH ×2 (08:59→21:12)
[2019-07-02] MEDS: CALCIUM CARB/VITAMIN D 250MG-125UNITS TABLET PO SCH (09:00)
[2019-07-02] MEDS: PRIMIDONE 50 MG TABLET PO SCH ×4 (09:00→20:16)
[2019-07-02] MEDS: RIFAMPIN 300 MG CAPSULE PO SCH (09:00)
[2019-07-02] MEDS: VENLAFAXINE XR 150 MG CAP.SR.24H PO SCH (09:01)
[2019-07-02] MEDS: PYRIDOXINE HCL 100 MG TABLET PO SCH (09:01)
[2019-07-02] MEDS ORDERED: MAGNESIUM SULFATE/D5W 100 ML IV SCH (10:15)
[2019-07-02] MEDS: CALCIUM CARBONATE 500 MG TAB.CHEW PO PRN (11:08)
[2019-07-02] MEDS: SULFAMETH/TRIMETH 800/160 MG TABLET PO SCH (12:07)
[2019-07-02 12:13] VITALS: BP 101/66
[2019-07-02 16:08] VITALS: BP 105/59
[2019-07-02 19:54] VITALS: BP 108/61
[2019-07-02] MEDS: DOCUSATE SODIUM 100 MG CAPSULE PO SCH (20:16)
[2019-07-02] MEDS: ACETAMINOPHEN 325 MG TABLET PO PRN (20:34)
[2019-07-03] VITALS: BP 113/61
[2019-07-03] MEDS: CALCIUM CARBONATE 500 MG TAB.CHEW PO PRN ×3 (00:11→21:02)
[2019-07-03] MEDS: VANCOMYCIN FOR PO/GT/NG USE PO SCH ×4 (00:11→17:34)
[2019-07-03 04:00] VITALS: BP 125/81
[2019-07-03] MEDS: MEROPENEM 500 MG in IV NORMAL SALINE 50 ML IV SCH ×2 (05:18→17:34)
[2019-07-03] MEDS: methylPREDNISolone SOD SUCC 40 MG/ML VIAL IV SCH ×3 (05:45→21:02)
[2019-07-03] MEDS: METOPROLOL TARTRATE 25 MG TABLET PO SCH ×3 (05:46→21:01)
[2019-07-03] MEDS: PANTOPRAZOLE SODIUM 40 MG TABLET.DR PO SCH (06:01)
[2019-07-03 07:01] LABS: CARBON DIOXIDE 23 mmol/L (21-32); CHLORIDE 105 mmol/L (98-107); GLUCOSE 121 mg/dL (74-106); MAGNESIUM 1.6 mg/dL (1.8-2.4); PHOSPHOROUS 2.9 mg/dL (2.5-4.9); POTASSIUM 4.2 mmol/L (3.5-5.1); UREA NITROGEN, BLOOD 21 mg/dL (7-18)
[2019-07-03 07:11] LABS: EOSINOPHILS # (AUTO) 0.1 K/uL (0.0-0.7); EOSINOPHILS % (AUTO) 0.5 % (0.0-7.0); LYMPHOCYTES % (AUTO) 6.5 % (20.5-51.5)
[2019-07-03 07:23] LABS: BASOPHILS % (AUTO) 0.2 % (0.0-2.0); HEMATOCRIT 33.4 % (36.7-47.1); HEMOGLOBIN 10.5 g/dL (12.5-16.3); LYMPHOCYTES # (AUTO) 1.1 K/uL (20.0-40.0); MEAN CORPUSCULAR HEMOGLOBIN 27.7 uug (23.8-33.4); MEAN CORPUSCULAR HGB CONC 31 g/dL (32.5-36.3); MEAN CORPUSCULAR VOLUME 88.3 fL (73.0-96.2); MONOCYTES # (AUTO) 1.1 K/uL (2.0-10.0); MONOCYTES % (AUTO) 6.5 % (0.0-11.0); NEUTROPHILS # (AUTO) 15.1 K/uL (1.8-8.9); NEUTROPHILS % (AUTO) 86.3 % (38.5-71.5); PLATELET COUNT (AUTO) 201 K/uL (152-348); RED BLOOD CELL COUNT(AUTO) 3.78 MIL/uL (4.06-5.63)
[2019-07-03 07:24] LABS: WHITE BLOOD COUNT (AUTO) 17.5 K/uL (3.6-10.2)
[2019-07-03] MEDS: IPRATROPIUM BROMIDE 0.5 MG/2.5 ML NEBU NEB SCH ×4 (07:25→19:41)
[2019-07-03] MEDS: ALBUTEROL SULFATE 2.5 MG/3 ML NEBU NEB SCH ×4 (07:25→19:41)
[2019-07-03 08:55] VITALS: BP 139/83
[2019-07-03] MEDS: buPROPion XL 150 MG TAB.SR.24H PO SCH (09:12)
[2019-07-03] MEDS: FINASTERIDE 5 MG TABLET PO SCH (09:12)
[2019-07-03] MEDS: RIFAMPIN 300 MG CAPSULE PO SCH (09:13)
[2019-07-03] MEDS: CALCIUM CARB/VITAMIN D 250MG-125UNITS TABLET PO SCH (09:13)
[2019-07-03] MEDS: PRIMIDONE 50 MG TABLET PO SCH ×4 (09:13→21:02)
[2019-07-03] MEDS: PYRIDOXINE HCL 100 MG TABLET PO SCH (09:13)
[2019-07-03] MEDS: VENLAFAXINE XR 150 MG CAP.SR.24H PO SCH (09:14)
[2019-07-03] MEDS: TERAZOSIN 5 MG CAPSULE PO SCH (09:18)
[2019-07-03] MEDS: MAGNESIUM SULFATE/D5W 100 ML IV SCH ×2 (11:31→12:20)
[2019-07-03 11:40] VITALS: BP 118/65
[2019-07-03] MEDS: SULFAMETH/TRIMETH 800/160 MG TABLET PO SCH (12:28)
[2019-07-03] MEDS: HYDROCODONE/APAP 10-325 MG TABLET PO PRN (15:06)
[2019-07-03 15:32] VITALS: BP 122/73
[2019-07-03 20:00] VITALS: BP 101/57
[2019-07-03] MEDS: DOCUSATE SODIUM 100 MG CAPSULE PO SCH (21:01)
[2019-07-04] VITALS: BP 101/60
[2019-07-04 01:00] VITALS: BP 107/66
[2019-07-04] MEDS: VANCOMYCIN FOR PO/GT/NG USE PO SCH ×5 (01:13→23:28)
[2019-07-04 04:00] VITALS: BP 109/59
[2019-07-04] MEDS: MEROPENEM 500 MG in IV NORMAL SALINE 50 ML IV SCH ×2 (05:12→18:00)
[2019-07-04] MEDS: methylPREDNISolone SOD SUCC 40 MG/ML VIAL IV SCH ×3 (05:13→21:00)
[2019-07-04] MEDS: METOPROLOL TARTRATE 25 MG TABLET PO SCH ×3 (05:15→21:00)
[2019-07-04] MEDS: ENOXAPARIN SODIUM 40 MG/0.4 ML DISP.SYRIN SQ SCH ×2 (05:18→18:00)
[2019-07-04] MEDS: PANTOPRAZOLE SODIUM 40 MG TABLET.DR PO SCH (06:05)
[2019-07-04 06:38] LABS: BASOPHILS # (AUTO) 0.1 K/uL (0.0-8.0); BASOPHILS % (AUTO) 0.3 % (0.0-2.0); EOSINOPHILS # (AUTO) 0.4 K/uL (0.0-0.7); EOSINOPHILS % (AUTO) 2.8 % (0.0-7.0); HEMATOCRIT 30.3 % (36.7-47.1); HEMOGLOBIN 9.8 g/dL (12.5-16.3); LYMPHOCYTES # (AUTO) 1.5 K/uL (20.0-40.0); LYMPHOCYTES % (AUTO) 9.8 % (20.5-51.5); MEAN CORPUSCULAR HEMOGLOBIN 27.9 uug (23.8-33.4); MEAN CORPUSCULAR HGB CONC 32 g/dL (32.5-36.3); MEAN CORPUSCULAR VOLUME 86.1 fL (73.0-96.2); MONOCYTES # (AUTO) 0.9 K/uL (2.0-10.0); MONOCYTES % (AUTO) 5.8 % (0.0-11.0); NEUTROPHILS # (AUTO) 12.1 K/uL (1.8-8.9); NEUTROPHILS % (AUTO) 81.3 % (38.5-71.5); PLATELET COUNT (AUTO) 216 K/uL (152-348); RED BLOOD CELL COUNT(AUTO) 3.52 MIL/uL (4.06-5.63); WHITE BLOOD COUNT (AUTO) 14.9 K/uL (3.6-10.2)
[2019-07-04 06:55] LABS: CREATININE 0.9 mg/dL (0.6-1.3); MAGNESIUM 1.6 mg/dL (1.8-2.4); PHOSPHOROUS 3.2 mg/dL (2.5-4.9)
[2019-07-04] MEDS: ALBUTEROL SULFATE 2.5 MG/3 ML NEBU NEB SCH ×4 (07:26→19:43)
[2019-07-04] MEDS: IPRATROPIUM BROMIDE 0.5 MG/2.5 ML NEBU NEB SCH ×4 (07:26→19:43)
[2019-07-04] MEDS: TERAZOSIN 5 MG CAPSULE PO SCH (08:45)
[2019-07-04] MEDS: FINASTERIDE 5 MG TABLET PO SCH (08:46)
[2019-07-04] MEDS: PYRIDOXINE HCL 100 MG TABLET PO SCH (08:46)
[2019-07-04] MEDS: buPROPion XL 150 MG TAB.SR.24H PO SCH (08:46)
[2019-07-04] MEDS: PRIMIDONE 50 MG TABLET PO SCH ×4 (08:46→20:19)
[2019-07-04] MEDS: VENLAFAXINE XR 150 MG CAP.SR.24H PO SCH (08:46)
[2019-07-04] MEDS: RIFAMPIN 300 MG CAPSULE PO SCH (08:46)
[2019-07-04] MEDS: CALCIUM CARB/VITAMIN D 250MG-125UNITS TABLET PO SCH (08:46)
[2019-07-04] MEDS: HYDROCODONE/APAP 10-325 MG TABLET PO PRN ×2 (11:01→23:28)
[2019-07-04] MEDS: MAGNESIUM SULFATE/D5W 100 ML IV SCH ×2 (12:08→15:10)
[2019-07-04 12:11] VITALS: BP 124/61
[2019-07-04] MEDS: SULFAMETH/TRIMETH 800/160 MG TABLET PO SCH (15:11)
[2019-07-04 15:24] VITALS: BP 104/58
[2019-07-04] MEDS: DOCUSATE SODIUM 100 MG CAPSULE PO SCH (20:19)
[2019-07-04 20:33] VITALS: BP 104/59
[2019-07-04] MEDS: CALCIUM CARBONATE 500 MG TAB.CHEW PO PRN (20:57)
[2019-07-05 00:47] VITALS: BP 96/57
[2019-07-05 05:04] VITALS: BP 108/56
[2019-07-05] MEDS: PANTOPRAZOLE SODIUM 40 MG TABLET.DR PO SCH (05:47)
[2019-07-05] MEDS: methylPREDNISolone SOD SUCC 40 MG/ML VIAL IV SCH (05:47)
[2019-07-05] MEDS: MEROPENEM 500 MG in IV NORMAL SALINE 50 ML IV SCH (05:47)
[2019-07-05] MEDS: METOPROLOL TARTRATE 25 MG TABLET PO SCH ×2 (05:48→13:08)
[2019-07-05] MEDS: VANCOMYCIN FOR PO/GT/NG USE PO SCH ×2 (05:52→13:07)
[2019-07-05 06:05] LABS: BASOPHILS # (AUTO) 0.1 K/uL (0.0-8.0); BASOPHILS % (AUTO) 0.8 % (0.0-2.0); EOSINOPHILS # (AUTO) 0.3 K/uL (0.0-0.7); EOSINOPHILS % (AUTO) 3.6 % (0.0-7.0); HEMATOCRIT 29.1 % (36.7-47.1); HEMOGLOBIN 9.5 g/dL (12.5-16.3); LYMPHOCYTES # (AUTO) 1.4 K/uL (20.0-40.0); LYMPHOCYTES % (AUTO) 15.6 % (20.5-51.5); MEAN CORPUSCULAR HEMOGLOBIN 28.3 uug (23.8-33.4); MEAN CORPUSCULAR HGB CONC 33 g/dL (32.5-36.3); MEAN CORPUSCULAR VOLUME 86.6 fL (73.0-96.2); MONOCYTES # (AUTO) 0.7 K/uL (2.0-10.0); MONOCYTES % (AUTO) 7.6 % (0.0-11.0); NEUTROPHILS # (AUTO) 6.7 K/uL (1.8-8.9); NEUTROPHILS % (AUTO) 72.4 % (38.5-71.5); PLATELET COUNT (AUTO) 228 K/uL (152-348); RED BLOOD CELL COUNT(AUTO) 3.37 MIL/uL (4.06-5.63); WHITE BLOOD COUNT (AUTO) 9.3 K/uL (3.6-10.2)
[2019-07-05 06:34] LABS: CREATININE 0.8 mg/dL (0.6-1.3); MAGNESIUM 1.7 mg/dL (1.8-2.4); PHOSPHOROUS 3.1 mg/dL (2.5-4.9); POTASSIUM 4.1 mmol/L (3.5-5.1)
[2019-07-05] MEDS: IPRATROPIUM BROMIDE 0.5 MG/2.5 ML NEBU NEB SCH ×3 (07:38→15:30)
[2019-07-05] MEDS: ALBUTEROL SULFATE 2.5 MG/3 ML NEBU NEB SCH ×3 (07:38→15:30)
[2019-07-05] MEDS: buPROPion XL 150 MG TAB.SR.24H PO SCH (08:40)
[2019-07-05] MEDS: FINASTERIDE 5 MG TABLET PO SCH (08:41)
[2019-07-05] MEDS: CALCIUM CARB/VITAMIN D 250MG-125UNITS TABLET PO SCH (08:42)
[2019-07-05] MEDS: CALCIUM CARBONATE 500 MG TAB.CHEW PO PRN (08:42)
[2019-07-05] MEDS: PRIMIDONE 50 MG TABLET PO SCH ×2 (08:43→13:07)
[2019-07-05] MEDS: TERAZOSIN 5 MG CAPSULE PO SCH (08:46)
[2019-07-05] MEDS: PYRIDOXINE HCL 100 MG TABLET PO SCH (08:47)
[2019-07-05] MEDS: RIFAMPIN 300 MG CAPSULE PO SCH (08:47)
[2019-07-05] MEDS: VENLAFAXINE XR 150 MG CAP.SR.24H PO SCH (08:50)
[2019-07-05 11:57] VITALS: BP 124/64
[2019-07-05] MEDS: SULFAMETH/TRIMETH 800/160 MG TABLET PO SCH (13:07)
[2019-07-05 13:08] VITALS: BP 119/72
[2019-07-05] MEDS ORDERED: MAGNESIUM SULFATE/D5W 100 ML IV SCH (14:30)
[2019-07-06] MEDS ORDERED: predniSONE 10 MG TABLET PO SCH (09:00)
== END 2019-07-05 15:13 | disposition short-term general hospital (02) | DRG 720 ==
LOC: ER 18:48 → TELE-TD3 21:27 → CCU 06-25 10:57 → TELE3 06-27 18:50 → TELE-TD3 06-28 06:02 → TELE3 06-28 19:10
PROVIDERS: ADMIT Nurse Practitioner Acute Care; ATTEND Nurse Practitioner Acute Care
PROC: 05HB33Z Insertion of Infusion Device into Right Basilic Vein, Percutaneous Approach (ICD-10-PCS; principal; 2019-06-25)
DX: A41.9 Sepsis, unspecified organism (principal); J96.01 Acute respiratory failure with hypoxia; I21.A1 Myocardial infarction type 2; J69.0 Pneumonitis due to inhalation of food and vomit; E43 Unspecified severe protein-calorie malnutrition; N17.0 Acute kidney failure with tubular necrosis; G92 Toxic encephalopathy; R53.2 Functional quadriplegia; E22.2 Syndrome of inappropriate secretion of antidiuretic hormone; C34.01 Malignant neoplasm of right main bronchus; J98.11 Atelectasis; D68.59 Other primary thrombophilia; E87.2 Acidosis; R65.21 Severe sepsis with septic shock; I50.33 Acute on chronic diastolic (congestive) heart failure; E87.5 Hyperkalemia; C79.31 Secondary malignant neoplasm of brain; C79.51 Secondary malignant neoplasm of bone; R65.20 Severe sepsis without septic shock; Z95.0 Presence of cardiac pacemaker; J44.9 Chronic obstructive pulmonary disease, unspecified; J96.22 Acute and chronic respiratory failure with hypercapnia; J96.21 Acute and chronic respiratory failure with hypoxia; K21.9 Gastro-esophageal reflux disease without esophagitis; I13.0 Hypertensive heart and chronic kidney disease with heart failure and stage 1 through stage 4 chronic kidney disease, or unspecified chronic kidney disease; N18.9 Chronic kidney disease, unspecified; R76.11 Nonspecific reaction to tuberculin skin test without active tuberculosis; F03.90 Unspecified dementia, unspecified severity, without behavioral disturbance, psychotic disturbance, mood disturbance, and anxiety; E87.6 Hypokalemia; F41.9 Anxiety disorder, unspecified; F17.210 Nicotine dependence, cigarettes, uncomplicated; E86.1 Hypovolemia; I25.10 Atherosclerotic heart disease of native coronary artery without angina pectoris; I70.0 Atherosclerosis of aorta; N40.0 Benign prostatic hyperplasia without lower urinary tract symptoms; Z92.21 Personal history of antineoplastic chemotherapy; D64.9 Anemia, unspecified; T45.1X5A Adverse effect of antineoplastic and immunosuppressive drugs, initial encounter; Y92.019 Unspecified place in single-family (private) house as the place of occurrence of the external cause; I08.2 Rheumatic disorders of both aortic and tricuspid valves; E83.52 Hypercalcemia; E83.51 Hypocalcemia; E83.42 Hypomagnesemia; E78.5 Hyperlipidemia, unspecified; D69.6 Thrombocytopenia, unspecified; Z68.20 Body mass index [BMI] 20.0-20.9, adult; Z74.09 Other reduced mobility
CPT/HCPCS: 36415; 36600; 70030-TC; 71045; 76770; 78580; 83605; 83735; 84100; 84132; 84443; 85025; 85730; 86606; 87040; 87070; 87086; 87400; 93005; 93307; 94640; 94664; A4217; A4663; A9150; A9540; C1758; C9113; G0378; J0696; J1644; J1650; J1956; J2185; J2248; J2270; J2405; J2543; J2920; J3370; J3475; J3480; J3490; J3590; J7030; J7040; J7050; J7060